=== PATIENT | male | born 1995 | race Caucasian/White ===

== ENCOUNTER 2018-07-02 09:26 | Emergency (ER) | payer BC, OTHER ==
[2018-07-02 10:26] VITALS: BP 130/80
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
== END 2018-07-02 11:11 | disposition home or self-care (01) ==
LOC: UCEAST 09:26
DX: S00.83XA Contusion of other part of head, initial encounter (principal); R04.0 Epistaxis; W50.0XXA Accidental hit or strike by another person, initial encounter; Y92.159 Unspecified place in reform school as the place of occurrence of the external cause; Y99.0 Civilian activity done for income or pay; Z88.0 Allergy status to penicillin
CPT/HCPCS: 70200; 99211; G0463